=== PATIENT | male | born 1965 | race Caucasian/White ===

== ENCOUNTER → 2016-09-09 | Outpatient (CLI) | payer OTHER | END | disposition home or self-care (01) | LOC: GMAM 15:05 | PROVIDERS: ATTEND Family Medicine | DX: M10.9 Gout, unspecified (principal); E11.9 Type 2 diabetes mellitus without complications ==

== ENCOUNTER → 2017-03-18 | Outpatient (CLI) | payer OTHER | END | disposition home or self-care (01) | LOC: GMAM 10:58 | PROVIDERS: ATTEND Family Medicine | DX: E29.1 Testicular hypofunction (principal); Z12.5 Encounter for screening for malignant neoplasm of prostate; M10.9 Gout, unspecified ==

== ENCOUNTER → 2017-08-18 | Outpatient (CLI) | payer BC | LOC: GMAM 14:42 | PROVIDERS: ATTEND Family Medicine | DX: E29.1 Testicular hypofunction (principal); M10.00 Idiopathic gout, unspecified site ==

== ENCOUNTER → 2018-01-06 | Outpatient (CLI) | payer BC | LOC: GMAM 10:51 | PROVIDERS: ATTEND Family Medicine | DX: E29.1 Testicular hypofunction (principal); M10.9 Gout, unspecified ==

== ENCOUNTER → 2018-10-27 | Outpatient (CLI) | payer BC | LOC: GMAM 16:50 | PROVIDERS: ATTEND Family Medicine | DX: R94.5 Abnormal results of liver function studies (principal) ==

== ENCOUNTER → 2019-09-11 | Outpatient (CLI) | payer BC | LOC: GMAM 10:58 | PROVIDERS: ATTEND Family Medicine | DX: Z00.00 Encounter for general adult medical examination without abnormal findings (principal); E29.1 Testicular hypofunction; M10.9 Gout, unspecified; Z12.5 Encounter for screening for malignant neoplasm of prostate ==

== ENCOUNTER → 2019-12-14 | Outpatient (CLI) | payer BC | LOC: GMAM 16:05 | PROVIDERS: ATTEND Family Medicine | DX: E53.8 Deficiency of other specified B group vitamins (principal); U07.1 COVID-19; E55.9 Vitamin D deficiency, unspecified ==